=== PATIENT | female | born 1955 | race Caucasian/White ===

== ENCOUNTER 2018-09-18 21:05 | Emergency (ER) | payer BC, OTHER ==
[2018-09-18 21:19] LABS: Glucose,Whole Blood 107 mg/dL (75-99)
[2018-09-18 21:24] VITALS: RESP 16; TEMP 97.4
--- NOTE | 2018-09-18 21:24 | CT ---
EXAMINATION TYPE: CT brain wo con for TPA DATE OF EXAM: 09/18/2018 HISTORY: Altered mental status. Neural deficits per order. CT DLP: 1071.8 mGycm. Automated Exposure Control for Dose Reduction was Utilized. TECHNIQUE: CT scan of the head is performed without contrast. COMPARISON: None. FINDINGS: There is acute hyperdensity centered posterior frontal level measuring roughly 4.5 cm tra nsversely by 2.5 cm AP diameter by 4 cm craniocaudal diameter axial image 34 and coronal image 30 con sistent with large area of acute intraparenchymal hemorrhage. There is some surrounding hypodensity o r vasogenic edema. Local mass effect is present without midline shift. No definitive acute intraventr icular hemorrhage is seen. There is background diffuse ventricular and sulcal prominence consistent w ith diffuse age-related cerebral atrophy. There is low-attenuation in the periventricular white sebastian er consistent with chronic small vessel ischemic change. The globes are intact and the visualized si nuses are clear. IMPRESSION: There is moderate to large focus of acute intraparenchymal hemorrhage or hemorrhagic infa rct centered posterior right frontal lobe with local mass effect but no midline shift. There is back ground mild diffuse age-related cerebral atrophy and suspected more moderate to severe chronic small vessel ischemic change incidentally noted. Critical results communicated to ordering ER physician via telephone at time of dictation.
[2018-09-18] MEDS ORDERED: LABETALOL SYRINGE 5 MG/ML IVP STA (21:25)
[2018-09-18] MEDS ORDERED: niCARdipine 20 MG in SODIUM CHLORIDE 0.9% 192 ML IV ONE (21:27)
--- NOTE | 2018-09-18 21:52 | ED ---
Neuro HPI - General Chief Complaint: Neuro Symptoms/Deficit Stated Complaint: Neuro Symptoms Time Seen by Provider: 09/18/18 21:05 Source: patient, family, EMS, RN notes reviewed Mode of arrival: EMS Limitations: no limitations - History of Present Illness Is the patient presenting with stroke symptoms?: Yes Initial Comments: This is a 63-year-old female history of thyroid cancer but no other medical history who is on no medications who apparently wasn't feeling well earlier today and about 6:30 PM she started developing left facial droop left upper lower extremity weakness and some slurred speech. She denies any history of headache denies any history of high blood pressure. She was brought in priority one by EMS for a code stroke. Code stroke was called and the patient was taken immediately to the CAT scan. No trauma reported I did discuss the history later when family arrived with the patient's and he does confirm that approximate 6:30 PM as this time of since starting. - Related Data Allergies/Adverse Reactions: Allergies Allergy/AdvReac Type Severity Reaction Status Date / Time aspirin Allergy Unknown Verified 09/18/18 21:16 Review of Systems ROS Statement: Those systems with pertinent positive or pertinent negative responses have been documented in the HPI. ROS Other: All systems not noted in ROS Statement are negative. General Exam - General Exam Comments Initial Comments: This a well-developed well-nourished awake alert no lethargic female she does demonstrate left facial droop with left upper lower extremity hemiplegia. She does demonstrate slightly slurred speech. He is awake alert oriented 3 Limitations: no limitations General appearance: alert, lethargic Head exam: Present: atraumatic, normocephalic, normal inspection Eye exam: Present: PERRL, EOMI, other (Patient does have bilateral gaze with appears to favor right gaze.) ENT exam: Present: normal exam, mucous membranes moist Neck exam: Present: normal inspection, full ROM, other (No stridor JVD or bruits ). Absent: tenderness, meningismus, lymphadenopathy Respiratory exam: Present: normal lung sounds bilaterally. Absent: respiratory distress, wheezes, rales, rhonchi, stridor Cardiovascular Exam: Present: regular rate, normal rhythm, normal heart sounds. Absent: systolic murmur, diastolic murmur, rubs, gallop, clicks GI/Abdominal exam: Present: soft, normal bowel sounds. Absent: distended, tenderness, guarding, rebound, rigid Extremities exam: Present: normal inspection, normal capillary refill. Absent: full ROM Back exam: Present: normal inspection Neurological exam: Present: alert, oriented X3, motor sensory deficit. Absent: CN II-XII intact Psychiatric exam: Present: normal affect, normal mood Skin exam: Present: warm, dry, intact, normal color. Absent: rash Stroke MDM - Lab Data Result diagrams: 09/18/18 21:37 Lab Results 09/18/18 09/18/18 Range/Units 21:17 21:37 WBC 6.1 (3.8-10.6) k/uL RBC 4.64 (3.80-5.40) m/uL Hgb 14.7 (11.4-16.0) gm/dL Hct 46.6 H (34.0-46.0) % MCV 100.5 H (80.0-100.0) fL MCH 31.7 (25.0-35.0) pg MCHC 31.5 (31.0-37.0) g/dL RDW 13.3 (11.5-15.5) % Plt Count 197 (150-450) k/uL Neutrophils % 78 % Lymphocytes % 13 % Monocytes % 6 % Eosinophils % 2 % Basophils % 1 % Neutrophils # 4.7 (1.3-7.7) k/uL Lymphocytes # 0.8 L (1.0-4.8) k/uL Monocytes # 0.4 (0-1.0) k/uL Eosinophils # 0.1 (0-0.7) k/uL Basophils # 0.0 (0-0.2) k/uL POC Glucose (mg/dL) 107 H (75-99) mg/dL POC Glu Substation Operator ID Joce Lnider - NIH Stroke Scale 1a. Level of Consciousness: (0) alert 1b. LOC Questions: (0) answers correctly 1c. LOC Commands: (0) performs tasks correctly 2. Best Gaze: (1) partial gaze palsy 3. Visual: (0) no visual loss 4. Facial Palsy: (2) partial paralysis 5a. Motor Arm Left: (4) no movement 5b. Motor Arm Right: (0) no drift 6a. Motor Leg Left: (4) no movement 6b. Motor Leg Right: (0) no drift 7. Limb Ataxia: (0) absent 8. Sensory: (1) mild/moderate sensory loss 9. Best Language: (1) mild/moderate aphasia 10. Dysarthria: (1) mild/moderate dysarthria - Thrombolytic Inclusion/Exclusion Thrombolytic Contraindications: Hx of ICH/AVM/Aneurysms (Acute intercerebral bleed) - Medical Decision Making Patient does demonstrate evidence of acute hemorrhagic stroke with left-sided deficits. She also has evidence of hypertensive crisis. IV medication was given to improve blood pressure which was accomplished. Patient does not want to be intubated so will be transported with head of bed elevated to 30. Paramedical be given IV labetalol to be given to keep the blood pressure less than 180 systolic. Patient will be transferred via EMS. This is the area ER. - Radiology Data Radiology results: report reviewed, image reviewed (I did discuss the case with the radiologist as well as review the CAT scans at the time of imaging there is a moderate to large focus of acute inner parenchymal hemorrhage or hemorrhagic infarct centered posterior right frontal lobe with local mass effect but no midline shift there is tobacco mild diffuse age-related cerebral atrophy and suspected more moderate to severe chronic small vessel ischemic change noted.) Past Medical History Past Medical History: Thyroid Disorder Additional Past Medical History / Comment(s): thyroid cancer History of Any Multi-Drug Resistant Organisms: None Reported Past Surgical History: No Surgical Hx Reported Past Psychological History: No Psychological Hx Reported Smoking Status: Never smoker Past Alcohol Use History: None Reported Past Drug Use History: None Reported Course Vital Signs 09/18/18 09/18/18 09/18/18 21:16 21:22 21:30 Temperature 97.4 F L Pulse Rate 65 50 L 72 Respiratory 16 16 Rate Blood Pressure 193/123 193/123 193/123 O2 Sat by Pulse 92 L 90 L 90 L Oximetry 09/18/18 09/18/18 21:40 21:50 Temperature Pulse Rate 88 82 Respiratory 16 16 Rate Blood Pressure 197/109 129/83 O2 Sat by Pulse 92 L 92 L Oximetry - Reevaluation(s) Reevaluation #1: 09/18/18 21:46 Reevaluation after return from CAT scan reveals patient continue with the above- mentioned deficits. Blood pressure initially was 193/123. Patient was given 10 mg of IV labetalol with improvement her blood pressure. Reevaluation #2: 09/18/18 21:47 I did discuss the case with Dr. Hull, who does request patient be transferred to [facility]. I did discuss this with Dr. Cash was agreed to accept the patient transfer. I did discuss this with the patient's and son who also agreed with. Reevaluation #3: 09/18/18 21:50 I did a long discussion with patient regarding the potential for intubation and cardiac arrest she does not want intubation or resuscitation should she go into arrest. She is condescending awake alert oriented 3 did inform the patient's and son of this they are in agreement at this time. Reevaluation #4: 09/18/18 21:54 EKG shows sinus rhythm a 74 NM interval 240 QRS duration 90 QT since QTC 456/ 506 low-voltage first-degree AV block nonspecific ST T-wave configuration evidence of a prolonged QT. 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 Patient had a sinus rhythm a 75 upon my exam no acute ST-T wave changes are seen no dysrhythmia noted. Critical Care Time Critical Care Time: Yes Critical Care Time: 39 minutes of critical care time which includes initial presentation with history physical labs x-rays almost constant evaluation the patient discussion with the patient family who are present discussion with the interventional neurologist discussion with the ER physician at [facility] discussed with paramedics transferring the patient documentation the above. Disposition Clinical Impression: Cerebrovascular accident, Intracerebral hemorrhage, Hypertensive emergency Disposition: OTHER INSTITUTION NOT DEFINED Condition: Critical Is patient prescribed a controlled substance at d/c from ED?: No Referrals: None,Stated [Primary Care Provider] - 1-2 days - Out of Hospital Transfer - Req. Specs Out of Hospital Transfer - Requested Specifics: Other Emergency Center
[2018-09-18 21:53] VITALS: BP 129/83; PULSE 82
[2018-09-18 21:53] LABS: Basophils % (A) 1 %; Eosinophils # (A) 0.1 k/uL (0-0.7); Eosinophils % (A) 2 %; HCT 46.6 % (34.0-46.0); HGB 14.7 gm/dL (11.4-16.0); Lymphocytes # (A) 0.8 k/uL (1.0-4.8); Lymphocytes % (A) 13 %; MCH 31.7 pg (25.0-35.0); MCHC 31.5 g/dL (31.0-37.0); MCV 100.5 fL (80.0-100.0); Mean Platelet Volume 6.7; Monocytes # (A) 0.4 k/uL (0-1.0); Monocytes % (A) 6 %; Neutrophils # (A) 4.7 k/uL (1.3-7.7); Neutrophils % (A) 78 %; Platelet Count 197 k/uL (150-450); RBC 4.64 m/uL (3.80-5.40); RDW 13.3 % (11.5-15.5); WBC 6.1 k/uL (3.8-10.6)
[2018-09-18 22:03] LABS: ALT 33 U/L (9-52); AST 33 U/L (14-36); Albumin 4.6 g/dL (3.5-5.0); Alkaline Phosphatase 69 U/L (38-126); Anion Gap 8 mmol/L; Blood Urea Nitrogen 18 mg/dL (7-17); Calcium 10.6 mg/dL (8.4-10.2); Carbon Dioxide 36 mmol/L (22-30); Chloride 95 mmol/L (98-107); Glucose 123 mg/dL (74-99); Potassium 4.6 mmol/L (3.5-5.1); Sodium 139 mmol/L (137-145); Total Bilirubin 0.7 mg/dL (0.2-1.3); Total Protein 8.7 g/dL (6.3-8.2)
[2018-09-18 22:08] LABS: INR 1.1 (<1.2); Partial Thromboplastin Time 28.2 sec (22.0-30.0); Prothrombin Time 11.2 sec (9.0-12.0)
[2018-09-18 22:26] LABS: Creatine Kinase MB 3.9 ng/mL (0.0-2.4); Troponin I 0.013 ng/mL (0.000-0.034)
== END 2018-09-18 21:55 | disposition other institution (70) ==
LOC: EC 21:05
DX: I63.9 Cerebral infarction, unspecified (principal); R29.715 NIHSS score 15; I61.9 Nontraumatic intracerebral hemorrhage, unspecified; I16.1 Hypertensive emergency; Z85.850 Personal history of malignant neoplasm of thyroid; Z88.6 Allergy status to analgesic agent; Z53.29 Procedure and treatment not carried out because of patient's decision for other reasons
CPT/HCPCS: 36415; 70450; 80053; 82550; 82553; 84484; 85025; 85610; 85730; 93005; 96374; 99291